=== PATIENT | female | born 1955 | race Caucasian/White ===

== ENCOUNTER 2017-04-29 19:14 | Emergency (ER) | payer OTHER ==
[~2017-04-29] VITALS: Ht 172.7 cm; Wt 88.3 kg
[~2017-04-29 19:14] MED LIST: ASCORBIC ACID500 M1 PO; BENTYL20 MG PO; BIOTIN1000 MICRO PO; BIOTIN5 MG PO; CIPRO500 MG PO; CRANBERRY500 M2 PO; DEXILANT30 MG PO; ESSENTIAL WOMA1 EAC1 PO; ESTRACE1 MG PO; ESTRADERM1 EAC1 TD; FLAGYL500 MG PO; LORTAB 5-325 M1 EACH PO; MOBIC7.5 MG PO; OMEGA-3 FISH O1 EAC3 PO; PROBIOTIC1 EAC1 PO; PROGESTERONE100 MG PO; SYNTHROID112 MCG PO; SYNTHROID88 MCG PO; TIROSINT88 MCG PO; VITAMIN B12 PO; ZOFRAN ODT8 MG PO; ZYRTEC10 M2 PO
[2017-04-29 20:30] LABS: HEMATOCRIT 41.6 % (36.0-46.0); MCH 30.2 PG (29.0-34.0); MCHC 33.2 G/DL (30.0-36.0); MEAN PLAT.VOLUME 10.7 uM^3 (9.5-12.4); PLATELET COUNT 261 K/uL (156-360); RBC DIS.WIDTH-CV 13.2 % (11.8-14.6); RBC DIS.WIDTH-SD 44.2 % (39-53); RED BLOOD COUNT 4.57 M/uL (3.80-5.20); WHITE BLOOD COUNT 10.9 K/uL (4.1-10.2)
[2017-04-29 20:36] LABS: CHLORIDE 104 mEq/L (99-109); POTASSIUM 4.3 mEq/L (3.7-5.4); SODIUM 141 mEq/L (136-147)
[2017-04-29 20:38] LABS: GLUCOSE 96 mg/dL (70-99)
[2017-04-29 20:40] LABS: ANION GAP 10 MEQ/L (2-14); TOTAL BILIRUBIN 0.8 mg/dL (0.0-1.0)
[2017-04-29 20:42] LABS: ALKALINE PHOSPHATASE 83 IU/L (3-129); GFR ESTIMATE (CALCULATED) > 59 mL/min/
[2017-04-29 20:43] LABS: UREA NITROGEN (BUN) 25 mg/dL (9-23)
[2017-04-29] MEDS ORDERED: BENTYL20 MG PO (21:52)
[2017-04-29] MEDS ORDERED: ZOFRAN ODT4 MG PO (21:52)
[2017-04-29 22:47] VITALS: BP 151/73
== END 2017-04-29 22:47 | disposition home or self-care (01) ==
LOC: EME 19:14
DX: R11.2 Nausea with vomiting, unspecified (principal); R19.7 Diarrhea, unspecified; T62.0X1A Toxic effect of ingested mushrooms, accidental (unintentional), initial encounter; K21.9 Gastro-esophageal reflux disease without esophagitis
CPT/HCPCS: 80053; 81003; 85027; 99281; 99283; J2405; J7030